=== PATIENT | female | born 1975 | race African-American/Black ===

== ENCOUNTER 2017-07-14 21:48 | Observation (INO) | payer OTHER ==
[~2017-07-14] VITALS: Ht 170.2 cm; Wt 70.7 kg
[2017-07-14 22:09] LABS: POINT-OF-CARE METER ID UU13113778
[2017-07-14 22:14] LABS: HEMATOCRIT 38.8 % (36.0-46.0); MCH 26.7 PG (29.0-34.0); MCHC 31.2 G/DL (30.0-36.0); MCV 85.5 FL (83-99); MEAN PLAT.VOLUME 10.3 uM^3 (9.5-12.4); PLATELET COUNT 255 K/uL (156-360); RBC DIS.WIDTH-CV 13.2 % (11.8-14.6); RBC DIS.WIDTH-SD 41.6 % (39-53); RED BLOOD COUNT 4.54 M/uL (3.80-5.20); WHITE BLOOD COUNT 6.4 K/uL (4.1-10.2)
[2017-07-14 22:25] LABS: CHLORIDE 101 mEq/L (99-109); POTASSIUM 4.3 mEq/L (3.7-5.4); SODIUM 138 mEq/L (136-147)
[2017-07-14 22:27] LABS: GLUCOSE 121 mg/dL (70-99)
[2017-07-14 22:28] LABS: ANION GAP 11 MEQ/L (2-14)
[2017-07-14 22:31] LABS: GFR ESTIMATE (CALCULATED) > 59 mL/min/; UREA NITROGEN (BUN) 13 mg/dL (9-23)
[2017-07-14 22:35] LABS: INTER. NORMALIZED RATIO 1.1; PROTHROMBIN TIME 12.6 SEC (10.2-12.9)
[2017-07-14 22:38] LABS: PTT 31.4 SEC (25-37)
[2017-07-14 22:39] LABS: TOTAL BILIRUBIN 0.5 mg/dL (0.0-1.0)
[2017-07-14 22:40] LABS: ALKALINE PHOSPHATASE 61 IU/L (3-129)
[2017-07-14 22:43] LABS: DIRECT BILIRUBIN 0.2 mg/dL (0.0-0.3)
[2017-07-14 22:50] LABS: TROP-I INTERPRETATION NEGATIVE; TROPONIN-I < 0.01 ng/mL (0.0-0.30)
[2017-07-15 04:35] LABS: QUANTITATIVE HCG < 4.0 MIU/ML
[2017-07-15 05:02] LABS: HDL CHOLESTEROL 120 MG/DL (Desirable>=50); LDL CHOLESTEROL 50 mg/dL (Desirable<100); NON-HDL CHOLESTEROL 75 mg/dL (Desirable<160); TOTAL CHOLESTEROL 195 mg/dL (Desirable<200); TRIGLYCERIDES 123 MG/DL (Normal: <150)
[2017-07-15] MEDS ORDERED: FOLIC ACID1 MG PO (09:17)
[2017-07-15] MEDS ORDERED: IRON325 M1 PO (09:17)
[2017-07-15] MEDS ORDERED: VITAMIN D31000 UNI2 PO (09:18)
[2017-07-15 16:00] VITALS: BP 106/68
[2017-07-15] MEDS ORDERED: ASPIRIN81 M2 PO (17:17)
== END 2017-07-15 18:55 | disposition home or self-care (01) ==
LOC: EME 21:48 → EDOF 07-15 03:29 → ENRESERV 07-15 03:31 → 5WEST 07-15 15:44
PROVIDERS: Emergency Medicine
DX: G45.9 Transient cerebral ischemic attack, unspecified (principal); G43.909 Migraine, unspecified, not intractable, without status migrainosus; I34.1 Nonrheumatic mitral (valve) prolapse; Z79.82 Long term (current) use of aspirin; Z82.49 Family history of ischemic heart disease and other diseases of the circulatory system; Z80.7 Family history of other malignant neoplasms of lymphoid, hematopoietic and related tissues; Z83.3 Family history of diabetes mellitus
CPT/HCPCS: 70450; 70496; 70498; 70551; 71020; 80048; 80061; 80076; 82948; 83036; 83605; 83880; 84484; 84702; 85027; 85610; 85730; 93005; 99281; 99285; G0378; J1650

== ENCOUNTER → 2017-07-31 | Outpatient (CLI) | payer OTHER ==
[~2017-07-31] VITALS: Ht 170.2 cm; Wt 70.7 kg
[~2017-07-31] MED LIST: ASPIRIN81 M2 PO; FOLIC ACID1 MG PO; IRON325 M1 PO; VITAMIN D31000 UNI2 PO
[2017-08-02 16:24] LABS: INTERNAL CONTROL VALID? YES
== END | disposition home or self-care (01) ==
LOC: AMB 10:02
PROVIDERS: Internal Medicine
PROC: 0DBL8ZX Excision of Transverse Colon, Via Natural or Artificial Opening Endoscopic, Diagnostic (ICD-10-PCS; principal; 2017-07-31)
DX: Z12.11 Encounter for screening for malignant neoplasm of colon (principal); Z80.0 Family history of malignant neoplasm of digestive organs; D12.3 Benign neoplasm of transverse colon; K64.8 Other hemorrhoids; K59.00 Constipation, unspecified; D64.9 Anemia, unspecified; I34.1 Nonrheumatic mitral (valve) prolapse; N91.1 Secondary amenorrhea; Z83.3 Family history of diabetes mellitus; Z82.49 Family history of ischemic heart disease and other diseases of the circulatory system; Z80.7 Family history of other malignant neoplasms of lymphoid, hematopoietic and related tissues
CPT/HCPCS: 84703; 88305; J2250; J3010